=== PATIENT | male | born 1950 | race African-American/Black ===

== ENCOUNTER → 2017-07-15 | Outpatient (CLI) | payer OTHER ==
[~2017-07-15] MED LIST: ACCUPRIL40 MG PO; AMOXICILLIN 50500 M1; ASPIRIN EC81 M1 PO; ATENOLOL 50 MG50 M1 PO; CLARITHROMYCIN250 M2; DOXYCYCLINE 10100 MG PO; ENDUR-ACIN500 MG PO; HYDROCHLOROTHIA25 M2 PO; KEFLEX250 MG PO; LIPITOR40 MG PO; NEXIUM40 MG PO; NORCO 5-325 TA1 EACH PO; NORFLEX100 MG PO; NORVASC10 MG PO; PACERONE 200 M200 M1 PO; PACERONE 200 M200 MG PO; POTASSIUM20 PO; PREDNISONE 20 M20 MG PO; PROAIR HFA8.5 GM INH; PROCARDIA XL60 MG PO; PROCARDIA XL90 MG PO; SLOW-MAG64 MG PO; TESSALON PERLE100 MG PO
--- NOTE | ~2017-07-15 | 2DMMODE ---
[facility] [address] [place] [address] 2 D/M-MODE ECHOCARDIOGRAM Name: KAROLINA MICHELLE Room #: [facility]#: [id number] Admission: 07/15/17 Attend Phys: José Luis Jacome Discharge: Date of : 48 Date of Service: 07/15/17 1227 Report #: [id number] THIS REPORT FOR: //name// APPROVED REPORT Study performed: 07/15/2017 11:04:48 EXAM: Comprehensive 2D, Doppler, and color-flow Echocardiogram Patient Location: Out-Patient Room #: Echo lab 1 Status: routine BSA: 2.26 HR: 60 bpm BP: 132/80 mmHg Other Information Study Quality: Good Indications ICD: Hypertension/HDD 2D Dimensions RVDd: 47.99 mm LVEF(%): 58.76 (>50%) IVSd: 13.88 (7-11mm) LVOT Diam: 23.84 (18-24mm) LVDd: 48.97 mm PWd: 13.26 (7-11mm) Ascending Ao: 33.09 (22-36mm) LVDs: 33.70 (25-40mm) Aortic Root: 33.67 mm IVC: 22.00 mm Bautista's LVEF: 58.76 % Volumes Left Atrial Volume (Systole) Single Plane 4CH: 59.45 mL Single Plane 2CH: 79.99 mL LA ESV Index: 35.00 mL/m2 Aortic Valve AoV Peak Curt.: 1.60 m/s AO Peak Gr.: 10.21 mmHg LVOT Max P.07 mmHg LVOT Max V: 1.01 m/s DANIELLE Vmax: 2.82 cm2 Mitral Valve E/A Ratio: 1.1 MV Decel. Time: 183.76 ms [facility] [place] [address] 2 D/M-MODE ECHOCARDIOGRAM Name: KAROLINA MICHELLE Room #: [facility].#: [id number] Admission: 07/15/17 Attend Phys: José Luis Jacome Discharge: Date of : 48 Date of Service: 07/15/17 1227 Report #: [id number] MV E Max Curt.: 1.01 m/s MV A Curt.: 0.95 m/s MV PHT: 53.29 ms IVRT: 129.18 ms Pulmonary Valve PV Peak Curt.: 1.13 m/s PV Peak Gr.: 5.10 mmHg TX End Vmax: 1.05 m/s Pulmonary Vein P Vein S: 0.62 m/s P Vein A: 0.22 m/s P Vein D: 0.40 m/s P Vein A Dur.: 115.3 msec P Vein S/D Ratio: 1.55 Tricuspid Valve TR Peak Curt.: 2.54 m/s TR Peak Gr.: 25.88 mmHg PA Pressure: 36.00 mmHg Left Ventricle The left ventricle is normal size. Mild concentric left ventricular hypertrophy. The left ventricular systolic function is normal. The left ventricular ejection fraction is within the normal range. LVEF is 50-55%. This study is not technically sufficient to allow evaluation of the LV diastolic function. Right Ventricle Right ventricle is dilated. The right ventricular systolic function is normal. Device lead is present in the right ventricle. Atria Left atrium is dilated. Right atrium is dilated. Device lead is present in the right atrium. Aortic Valve The aortic valve is normal in structure. Aortic valve is calcified. Trace aortic regurgitation. There is no aortic valvular stenosis. Mitral Valve The mitral valve is normal in structure. Mild mitral regurgitation. No evidence of mitral valve stenosis. Tricuspid Valve The tricuspid valve is normal in structure. There is mild tricuspid regurgitation. Estimated PAP 36 mmHg. [place] [address] 2 D/M-MODE ECHOCARDIOGRAM Name: KAROLINA MICHELLE Room #: [facility]#: [id number] Admission: 07/15/17 Attend Phys: José Luis Jacome Discharge: Date of : 48 Date of Service: 07/15/17 1227 Report #: [id number] hypertension. Pulmonic Valve The pulmonary valve is normal in structure. Mild pulmonic regurgitation. Great Vessels The aortic root is normal in size. IVC is dilated and collapses <50% with inspiration. Pericardium There is no pericardial effusion. <Conclusion> The left ventricle is normal size. LVEF is 50-55%. Right ventricle is dilated. Device lead is present in the right ventricle. Left atrium is dilated. Right atrium is dilated. Device lead is present in the right atrium. The aortic valve is normal in structure. Aortic valve is calcified. Trace aortic regurgitation. The mitral valve is normal in structure. Mild mitral regurgitation. The tricuspid valve is normal in structure. There is mild tricuspid regurgitation. Estimated PAP 36 mmHg. There is mild pulmonary hypertension. The pulmonary valve is normal in structure. Mild pulmonic regurgitation. There is no pericardial effusion. <ELECTRONICALLY SIGNED> By: Bulmaro Khan MD 07/15/17 [phone] Bulmaro Khan MD /INF
== END ==
LOC: CV 10:54
DX: I08.1 Rheumatic disorders of both mitral and tricuspid valves (principal); I27.20 Pulmonary hypertension, unspecified; Z95.810 Presence of automatic (implantable) cardiac defibrillator

== ENCOUNTER → 2019-07-12 | Outpatient (CLI) | payer OTHER | LOC: SJCVCIMAG 14:16 | PROVIDERS: ATTEND Internal Medicine Cardiovascular Disease | DX: I08.3 Combined rheumatic disorders of mitral, aortic and tricuspid valves (principal); I48.91 Unspecified atrial fibrillation; Z95.0 Presence of cardiac pacemaker ==

== ENCOUNTER 2020-02-16 23:12 | Inpatient (IN) | payer OTHER ==
[~2020-02-16] VITALS: Ht 182.9 cm; Wt 99.8 kg
[2020-02-16 23:13] VITALS: BP 130/53
[2020-02-16 23:43] LABS: BE(vivo) -2.6 mmol/L (-2 to +3); HCO3 21.3 mmol/L (22.0-26.0); PCO2 34.5 mmHg (35.0-45.0); PO2 235.3 mmHg (80.0-100.0); pH 7.409 (7.360-7.450); sO2 99.5 % (92.0-98.0)
[2020-02-16 23:47] LABS: ANION GAP 11 mmol/L (7-16); BUN 61 mg/dL (7-18); CALCIUM 9.6 mg/dL (8.5-10.1); CHLORIDE 99 mmol/L (98-107); CO2 25 mmol/L (21-32); CREATININE 2.2 mg/dL (0.7-1.3); GLUCOSE 211 mg/dL (74-106); POTASSIUM 4.3 mmol/L (3.5-5.1); SODIUM 135 mmol/L (136-145)
[2020-02-16 23:56] LABS: TROPONIN-I <0.06 ng/mL (<0.06)
[2020-02-17 00:02] LABS: APTT 32.2 Seconds (24.5-32.8); INR 1.2; PROTIME 12.8 Seconds (9.3-11.4)
[2020-02-17 00:49] LABS: HEMOGLOBIN 9.8 gm/dL (14.0-18.0); MCH 31.4 pg (26.0-34.0); MCHC 32.7 g/dL (28.0-37.0); MCV 96.1 fL (80.0-100.0); RBC 3.12 mil/uL (4.50-6.00); RDW 13.3 % (10.5-14.5); WBC 12.1 thou/uL (4.0-11.0)
[2020-02-17] MEDS ORDERED: CARVEDILOL12.5 MG PO (01:28)
[2020-02-17] MEDS ORDERED: ELIQUIS5 MG PO (01:29)
[2020-02-17] MEDS ORDERED: HYDRALAZINE 10M10 MG PO ×2 (01:29→18:09)
[2020-02-17] MEDS ORDERED: NIFEDIPINE ER90 MG PO (01:30)
[2020-02-17] MEDS ORDERED: K-DUR 20 MEQ T20 MEQ PO (01:30)
[2020-02-17] MEDS ORDERED: TAMSULOSIN HCL0.4 MG PO (01:31)
[2020-02-17] MEDS ORDERED: FAMOTIDINE40 MG PO (01:31)
[2020-02-17] MEDS ORDERED: PRAVACHOL40 MG PO (01:31)
[2020-02-17 03:11] LABS: URINE BILIRUBIN NEGATIVE (Negative); URINE BLOOD NEGATIVE (Negative); URINE CLARITY CLEAR; URINE COLOR YELLOW; URINE GLUCOSE-RANDOM* NEGATIVE (Negative); URINE KETONES NEGATIVE (Negative); URINE LEUKOCYTES-REFLEX NEGATIVE (Negative); URINE NITRITE-REFLEX NEGATIVE (Negative); URINE PROTEIN (DIPSTICK) NEGATIVE (Negative)
--- NOTE | 2020-02-17 10:04 | NUR ---
CLERICAL PROOFREADER SPOKE TO PT'S SPOUSE (PT'S VERBAL CONSENT OBTAINED). UPDATE ON POC GIVEN LAB AND IMAGING RESULTS DISCUSSED. SHE WAS ALSO MADE AWARE BED ASSIGNMENT IS STILL PENDING AT THIS TIME. MESSAGE FROM SPOUSE RELAYED TO PT.
[2020-02-17 15:51] VITALS: BP 151/77
[2020-02-17 16:52] VITALS: BP 162/74
[2020-02-17 17:36] VITALS: BP 140/68
--- NOTE | 2020-02-17 18:35 | NUR ---
PT CARE ASSUMED AT 1750 FROM ER. A&Ox4. ON BIPAP 40L. ADMISSION COMPLEETED WITH OVER THE PHONE. IV PATENT WITH NO REDNESS OR EDEMA. CAN BE ON HIGHFLOW WHILE EATING. FALL PROTOCOL IN PLACE. CALL LIGHT IN REACH. WILL CONTINUE TO MONITOR.
[2020-02-17 19:55] LABS: ALBUMIN 2.5 g/dL (3.4-5.0); DIRECT BILIRUBIN 0.1 mg/dL (<0.1-0.2); TOTAL BILIRUBIN 0.5 mg/dL (0.2-1.0); TOTAL PROTEIN 7.3 g/dL (6.4-8.2)
[2020-02-17 21:27] VITALS: BP 147/75
[2020-02-18] VITALS (7 sets, daily range): BP systolic 137–178; BP diastolic 78–90
--- NOTE | 2020-02-18 04:36 | NUR ---
PT AOX4 WITH INTERMITTENT FORGETFULNESS. PT DENIES PAIN. PT HAS PRN PO APAP Q6HR AVAILABLE. PT REPORTS SOB WITH EXERTION AND AT REST WHILE ON 10L VIA HIGH FLOW NASAL CANNULA. PT ON BIPAP AT HS. PT TOLERATING PO INTAKE OF FLUIDS AND HEART HEALTHY DIET WITHOUT ISSUE. PT WITHOUT NAUSEA OR EMESIS. PT VOIDING PER URINAL INDEPENDENTLY. PT AMBULATING SHORT DISTANCES WITH STANDBY/MINIMAL ASSIST PT REPORTS WEAKNESS. PT RESTING IN BED THROUGHOUT SHIFT, FREQUENT REPOSITIONING ENCOURAGED. PT NOTED TO SHIFT INDEPENDENTLY WHILE IN BED. PT ENCOURAGED TO NOTIFY STAFF FOR ALL NEEDS, CALL LIGHT WITHIN REACH, BED ALARM ON, BED IN LOWEST POSITION, FREQUENT MONITORING WILL CONTINUE.
[2020-02-18 05:49] LABS: HEMATOCRIT 29.2 % (42.0-52.0); HEMOGLOBIN 9.5 gm/dL (14.0-18.0); MCH 31.6 pg (26.0-34.0); MCHC 32.6 g/dL (28.0-37.0); MCV 96.8 fL (80.0-100.0); RBC 3.02 mil/uL (4.50-6.00); RDW 13.6 % (10.5-14.5); WBC 16.8 thou/uL (4.0-11.0)
[2020-02-18 06:08] LABS: ALBUMIN 2.4 g/dL (3.4-5.0); CALCIUM 9.3 mg/dL (8.5-10.1); CREATININE 1.3 mg/dL (0.7-1.3); DIRECT BILIRUBIN 0.1 mg/dL (<0.1-0.2); PHOSPHORUS 2.8 mg/dL (2.6-4.7); POTASSIUM 4.1 mmol/L (3.5-5.1); TOTAL BILIRUBIN 0.3 mg/dL (0.2-1.0); TOTAL PROTEIN 7.5 g/dL (6.4-8.2)
--- NOTE | 2020-02-18 10:55 | NUR ---
PT CARE ASSUMED AT 0700. A&Ox4 WITH FORGETFUL EPISODES AND REINFORCEMENT WITH NEW INFORMATION. PT REFUSED CONVOLECENT PLASMA LAST NIGHT AND WANTED TO SPEAK TO HIS FIRST. IPAD IN ROM TO SPEAK TO . PT CONSENTED TO CONVOLESENT PLASMA WHICH IS CURRENTLY INFUSING. PT VERY TIRED. TRIAL DONE TO REDUCE O2 TO 8L BUT FAILED. ADJUSTED BACK UP TO 10L. VITALS ARE STABLE. FALL PROTOCOL IN PLACE. IV PATENT WITH NO REDNESS OR EDEMA, FLUIDS INFUSING. PT IS NT EATING HIS MEALS. NO AETITE. URINAL AT BEDISTE. PT HAD A INCONTINENT BOWEL EPISODE NOT DIARRHEA AND IS NOW WEARING BRIEFS. CALL LIGHT IN REACH. WILL CONTINUE TO MONITOR.
--- NOTE | 2020-02-18 11:16 | EKG ---
[address] [place] [address] ELECTROCARDIOGRAM REPORT Name: KAROLINA MICHELLE Room #: 355-P ADM IN M.R.#: [id number] Admission: 02/17/20 Attend Phys: Thaddeus Gutierrez MD Discharge: Date of : 48 Report #: [id number] [facility] ED Test Date: 2020-02-16 Test Time: 23:12:42 Pat Name: KAROLINA MICHELLE Department: Room: 355 Gender: M Public Records Researcher: jarred : 1950 Requested By: Jamaal Pickens Order Number: [id number] MD: Herminio Kendall Measurements Intervals [place] Rate: 60 P: 0 IN: 65 QRS: -76 QRSD: 212 T: 86 QT: 578 QTc: 578 Interpretive Statements Atrial-ventricular dual-paced complexes No further analysis attempted due to paced rhythm Compared to ECG 02/01/2015 08:09:45 No significant changes Electronically Signed On 02-18-2020 11:16:09 BOAT OPERATOR by Herminio Kendall [email or web address] <ELECTRONICALLY SIGNED> By: Herminio Kendall MD, [facility] 02/18/20 1116 D: 12/2311 11 Herminio Kendall MD, FACC /EPI
--- NOTE | 2020-02-18 17:18 | HC ---
[facility] [place] [address] CONSULTATION Name: KAROLINA MICHELLE Room #: 355- ADM IN M.R.#: [id number] Admission: 02/17/20 Attend Phys: Thaddeus Gutierrez MD Discharge: Date of : 48 Report #: [id number] THIS REPORT FOR: cc: FAM - No family physician/PCP FAM - No family physician/PCP Raphael Gonzalez MD ~ DATE OF SERVICE: 02/17/2020 REASON FOR CONSULTATION: I was asked to evaluate concerning COVID-19 pneumonia and respiratory failure. HISTORY OF PRESENT ILLNESS: The patient is a 70-year-old who has not felt well for about a month. This has been associated with some progressive shortness of breath. Minimal cough or sputum production. No fever, chills, or sweats. Over the last 4 days, he has noticed progressive shortness of breath and presented to the Emergency Room for further evaluation. His was tested COVID negative. He was recently tested COVID positive. He was screened here during his initial evaluation and is confirmed COVID-19 positive. He has had cough with minimal sputum production. No hemoptysis. No pleuritic chest pain. He has had mild headache. Loss of taste and smell. Mild nausea and diarrhea. No abdominal pain. No arthritis or myalgias. No travel. No previous history of pneumonia. Nonsmoker. No HIV risk factors. He is obese. He does have a history of hypertension and atrial fibrillation with known renal insufficiency. REVIEW OF SYSTEMS: A 14-point review of system was negative other than what has been described above. ALLERGIES: None. MEDICATIONS: Included doxycycline prior to his admission. Other medications as noted on his MAR. 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 FAMILY HISTORY: Positive for cancer. SOCIAL HISTORY: Nonsmoker, no significant alcohol intake. Lives with his . PHYSICAL EXAMINATION: VITAL SIGNS: He was afebrile and hemodynamically stable. Moderate obesity. SKIN: Without rash or decubitus. No palpable adenopathy. EYES: Without scleral icterus. MOUTH: Without mucositis. [facility] [address] [place] [address] CONSULTATION Name: KAROLINA MICHELLE Room #: 355-P [facility] IN .R.#: [id number] Admission: 02/17/20 Attend Phys: Thaddeus Gutierrez MD Discharge: Date of : 48 Report #: [id number] NECK: Supple. LUNGS: Coarse breath sounds posteriorly. HEART: Regular, without murmur, gallop, or rub. ABDOMEN: Mild obesity, soft, nontender, no hepatosplenomegaly or mass. EXTREMITIES: With no clubbing, cyanosis, or edema. GENITAL AND RECTAL: Not performed. NEUROLOGIC: Cranial nerves intact. Strength in his upper and lower extremities was symmetric and within normal limits. BACK: Nontender to percussion. PSYCHIATRIC: Mood without anxiety or depression. LABORATORY STUDIES: Reviewed. MICROBIOLOGY: Reviewed. IMAGING STUDIES: Chest x-ray reviewed. IMPRESSION: 1. A 70-year-old with COVID-19 pneumonia and systemic inflammatory response syndrome with respiratory failure, now on BiPAP. He has acute on chronic kidney injury with GFR of 36. 2. Chronic kidney disease. 3. Asthma. 4. Paroxysmal atrial fibrillation. 5. Cardiomyopathy. 6. Hypertension. RECOMMENDATIONS: 1. We will continue care on the COVID unit for isolation and cardiopulmonary monitoring. Treat with combination antiviral therapy. 2. Monitor laboratory studies including creatinine and liver function tests. Serial chest x-rays. Antibiotic therapy while awaiting further culture results. The patient is at risk for further progression of disease given his age, underlying asthma, and need for BiPAP at this point. <ELECTRONICALLY SIGNED> By: Raphael Gonzalez MD 02/18/20 1718 [id number] Raphael Gonzalez MD /nt
[2020-02-19 03:05] VITALS: BP 161/81
--- NOTE | 2020-02-19 05:25 | NUR ---
PT RESTING QUIETLY. NO C/O PAIN. NO S/S DISTRESS. PT PROGRESSING WELL TOWARDS D/C GOALS.
[2020-02-19 06:24] LABS: HEMATOCRIT 28.2 % (42.0-52.0); HEMOGLOBIN 9.4 gm/dL (14.0-18.0); MCH 32.2 pg (26.0-34.0); MCHC 33.5 g/dL (28.0-37.0); MCV 96.1 fL (80.0-100.0); RBC 2.93 mil/uL (4.50-6.00); RDW 13.5 % (10.5-14.5); WBC 14.6 thou/uL (4.0-11.0)
[2020-02-19 06:33] LABS: ALBUMIN 2.6 g/dL (3.4-5.0); CALCIUM 9.3 mg/dL (8.5-10.1); CREATININE 1.3 mg/dL (0.7-1.3); DIRECT BILIRUBIN 0.2 mg/dL (<0.1-0.2); PHOSPHORUS 2.4 mg/dL (2.5-4.9); POTASSIUM 3.6 mmol/L (3.5-5.1); TOTAL BILIRUBIN 0.5 mg/dL (0.2-1.0); TOTAL PROTEIN 7.6 g/dL (6.4-8.2)
[2020-02-19 09:17] VITALS: BP 160/89
[2020-02-19 15:36] VITALS: BP 168/91
[2020-02-19 20:35] VITALS: BP 160/94
--- NOTE | 2020-02-20 03:00 | NUR ---
PATIENT ALERT AND ORIENTED X4. AT SHIFT CHANGE PATIENT WAS ON A VIDEO CALL WITH HIS . THIS NURSE SPOKE TO HER REGARDING PATIENTS LUNGS AND HOW HIS DAY WENT. MRS. MICHELLE WOULD LIKE TO HAVE A VIDEO CHAT WITH THE AM NURSE IN THE MORNING. BS MONITORED PER ORDER. IVF INFUSING W/O COMPLICATION. 02NC PER RT WITH CONTINUOUS PULSE OX. PATIENT COOPERATIVE WITH CARE. VOIDING PER URINAL. DENIES PAIN. WILL MONITOR.
[2020-02-20 05:22] VITALS: BP 163/89
[2020-02-20 06:44] LABS: ALBUMIN 2.8 g/dL (3.4-5.0); CALCIUM 9.8 mg/dL (8.5-10.1); CREATININE 1.5 mg/dL (0.7-1.3); DIRECT BILIRUBIN 0.2 mg/dL (<0.1-0.2); PHOSPHORUS 3.7 mg/dL (2.5-4.9); POTASSIUM 3.8 mmol/L (3.5-5.1); TOTAL BILIRUBIN 0.5 mg/dL (0.2-1.0); TOTAL PROTEIN 7.9 g/dL (6.4-8.2)
[2020-02-20 07:35] VITALS: BP 147/98
--- NOTE | 2020-02-20 12:54 | NUR ---
INITIAL ASSESSMENT: SW reviewed chart and spoke with nursing and attending physician. Pt was admitted from home due to pneumonia/hypoxia. Pt placed in Enhanced Isolation due to positive COVID-19 test. Pt is afebrile and on 9L of O2. Pt is on IV abx and IV steroids. Pt is completing courses of Remdesivir and Ivermectin. Discharge home is anticipated in 1-2 days. SW spoke with pt via phone. Introduced role of SW. Pt is alert/orientated x 4. Pt reports he lives at home with his . Prior to admission, pt was independent with ADLs. No use of DME. Pt states he has used HH in the past, but unsure of provider. Pt's PCP is Dr. Sherman Cm. Pt states his plan is to discharge home when medically stable. Pt will need a rest/exercise oximetry to determine home O2 needs. SW is following to assist as needed with discharge planning.
[2020-02-20 15:26] VITALS: BP 112/70
--- NOTE | 2020-02-20 18:02 | NUR ---
PT CARE ASSUMED AT 0700. A&Ox4. PT UP IN THE RECLINER ALL DAY. WEANED DOWN TO 4L SATING AT 97%. TOLERATING WELL. IV PATENT WITH NO REDNESS OR EDEMA, FLUIDS INFUSING. FALL PROTOCOL IN PLACE. ACHS WITH SLIDING SCALE IN PLACE. USES URINAL AT BEDSIDE. AFIB PACED, BB ON MONITOR. WILL CONTINUE TO MONITOR.
[2020-02-20 19:38] VITALS: BP 125/68
[2020-02-21 03:25] VITALS: BP 147/83
[2020-02-21 05:49] LABS: HEMATOCRIT 29.3 % (42.0-52.0); HEMOGLOBIN 9.7 gm/dL (14.0-18.0); MCH 31.4 pg (26.0-34.0); MCV 95.3 fL (80.0-100.0); RBC 3.08 mil/uL (4.50-6.00); RDW 13.6 % (10.5-14.5); WBC 13.5 thou/uL (4.0-11.0)
[2020-02-21 06:21] LABS: ALBUMIN 2.6 g/dL (3.4-5.0); CREATININE 1.3 mg/dL (0.7-1.3); DIRECT BILIRUBIN 0.1 mg/dL (<0.1-0.2); PHOSPHORUS 3.5 mg/dL (2.5-4.9); POTASSIUM 4.1 mmol/L (3.5-5.1); TOTAL BILIRUBIN 0.4 mg/dL (0.2-1.0); TOTAL PROTEIN 7.2 g/dL (6.4-8.2)
[2020-02-21 07:40] VITALS: BP 117/62
--- NOTE | 2020-02-21 14:37 | NUR ---
YINA reviewed chart and spoke with nursing and attending physician. Pt remains in Enhanced Isolation due to COVID-19. Pt is afebrile and on 4-6L of O2. Pt is on IV abx and completing course of Remdesivir. Discharge home is anticipated in 1-2 days. Recommendation made for HH. Pt will need a rest/exercise oximetry ordered to determine if pt needs home O2. YINA placed call to pt's room. No answer. YINA spoke with pt's , Shreya, via phone to provide update and discuss discharge recommendations. Pt's is agreeable with HH and Home O2. Options provided. No preference voiced. SW confirmed pt's home address. YINA faxed HH referral to [facility] for review. YINA also faxed referral to [facility] for review for possible home O2. YINA is following to assist as needed with discharge planning.
[2020-02-21 15:21] VITALS: BP 119/67
[2020-02-21 19:15] VITALS: BP 108/64
--- NOTE | 2020-02-21 19:30 | NUR ---
RN ASSUMED PT'S CARE AT 0700AM, PT IS A&0X3, PT IS ON O2 4L/MIN/NC, PT'S VS ARE STABLE, PT HAS SOB WITH ACTIVITIES, PT GETS UP TO CHAIR AND WALK IN HIS ROOM, PT DENIES PAIN BY THIS TIME.
[2020-02-22 04:07] VITALS: BP 126/75
[2020-02-22 07:18] VITALS: BP 133/72
[2020-02-22 09:10] VITALS: BP 150/87
--- NOTE | 2020-02-22 13:15 | NUR ---
Pt seen for LOS. Pt continues with fair appetite, consuming ~66% at meal times. No new wt since admission for review. No PU noted. No c/o GI distress. Pt remains low nutrition risk.
--- NOTE | 2020-02-22 14:59 | NUR ---
YINA reviewed chart and spoke with nursing and attending physician. Pt remains in Enhanced Isolation due to COVID-19. Pt is afebrile and still requiring O2. Rest/exercise oximetry completed. Pt needs 4L of O2. YINA discussed with attending physician. Discharge home is anticipated for tomorrow. Pt is on IV abx. YINA updated Radha in intake at [facility] and Rajesh at [facility] of pt's discharge. YINA placed call to pt's room. No answer. YINA spoke with pt's , Shreya, via phone to discuss discharge plan. Pt's is agreeable. Pt's son will be providing transportation home. YINA is following to assist as needed with discharge planning.
[2020-02-22 15:23] VITALS: BP 150/87
--- NOTE | 2020-02-22 17:59 | NUR ---
RN ASSUMED PT'S CARE AT 0700AM, PT IS A&OX3, PT IS ON O2 2L/MIN/NC AND O2 4L/MIN/NC WITH ACTIVITIES PER RT CHECK, PT'S VS ARE STABLE, PT DOES NOT HAVE FEVER, PT GETS UP TO WALK IN HI ROOM, PT MAY DC TO HOME TOMORROW.
[2020-02-22 20:18] VITALS: BP 144/80
[2020-02-23 04:40] VITALS: BP 139/86
[2020-02-23 06:47] LABS: HEMATOCRIT 29.9 % (42.0-52.0); HEMOGLOBIN 9.6 gm/dL (14.0-18.0); MCHC 32.2 g/dL (28.0-37.0); MCV 96.4 fL (80.0-100.0); RBC 3.1 mil/uL (4.50-6.00); RDW 13.9 % (10.5-14.5); WBC 13.5 thou/uL (4.0-11.0)
[2020-02-23 07:08] LABS: CALCIUM 9.8 mg/dL (8.5-10.1); CREATININE 1.2 mg/dL (0.7-1.3); POTASSIUM 3.8 mmol/L (3.5-5.1)
[2020-02-23] MEDS ORDERED: PREDNISONE 10 M10 M1 PO (07:59)
[2020-02-23 08:02] VITALS: BP 150/83
[2020-02-23 09:01] VITALS: BP 150/83
[2020-02-23 11:08] VITALS: BP 150/83
--- NOTE | 2020-02-23 11:43 | NUR ---
PT CARE ASSUMED AT 0700. A&Ox4. PT UP IN THE RECLINER WITH RECLINER AT BED SITE. ON 2L RESTING AND 4L WHEN UP AND MOVING AROUND. UPDATED ON DISCAHRGE INSTRUCTIONS. IV REMOVED. ACHS WITH LOW SLIDING SCALE. RT EVALUATED FOR RESTING VS. EXCERCISE O2 NEEDS. FALL PROTOCOL IN PLACE. CALL LIGHT IN REACH. WILL CONTINUE UNTIL RIDE ARRIVES FOR PATIENT. DISCAHRGED WITH NO FURTHER QUESTIONS FROM PATIENT OR .
--- NOTE | 2020-02-23 13:56 | NUR ---
DISCHARGE NOTE: SW reviewed chart and spoke with nursing and attending physician. Pt remains in Enhanced Isolation due to COVID-19. Pt is medically stable for discharge home today with and Home O2. SW faxed finalized discharge orders/summary to [facility] . Line busy at . Will follow up with intake to confirm info was received. YINA faxed rest/exercise oximetry results and script to [facility] for home O2. Portable O2 tank delivered to pt's room earlier today. SW placed contact info for and [facility] in pt's discharge summary. Pt's family to provide transportation home. No additional SW needs identified at this time, but is available to assist should needs arise.
== END 2020-02-23 13:33 | disposition home health service (06) | DRG 871 ==
LOC: ER 23:12 → 3W 02-17 01:34 → EROBS 02-17 01:34 → 3W 02-17 17:01
PROVIDERS: Emergency Medicine; Hospitalist; Internal Medicine Pulmonary Disease; Nurse Practitioner Family; Specialist; ADMIT Internal Medicine; ATTEND Internal Medicine
DX: A41.9 Sepsis, unspecified organism (principal); U07.1 COVID-19; J96.01 Acute respiratory failure with hypoxia; G92 Toxic encephalopathy; J12.89 Other viral pneumonia; N17.0 Acute kidney failure with tubular necrosis; I42.9 Cardiomyopathy, unspecified; I50.22 Chronic systolic (congestive) heart failure; I48.20 Chronic atrial fibrillation, unspecified; I13.0 Hypertensive heart and chronic kidney disease with heart failure and stage 1 through stage 4 chronic kidney disease, or unspecified chronic kidney disease; I48.0 Paroxysmal atrial fibrillation; E78.5 Hyperlipidemia, unspecified; N18.9 Chronic kidney disease, unspecified; J45.909 Unspecified asthma, uncomplicated; E87.6 Hypokalemia; D64.9 Anemia, unspecified; I95.9 Hypotension, unspecified; Z89.111 Acquired absence of right hand; Z95.0 Presence of cardiac pacemaker; Z82.49 Family history of ischemic heart disease and other diseases of the circulatory system; Z79.01 Long term (current) use of anticoagulants; Z28.21 Immunization not carried out because of patient refusal; Z79.899 Other long term (current) drug therapy
CPT/HCPCS: 10879

== ENCOUNTER → 2020-07-11 | Outpatient (CLI) | payer OTHER ==
[~2020-07-11] MED LIST changes: +CARVEDILOL12.5 MG PO; +ELIQUIS5 MG PO; +FAMOTIDINE40 MG PO; +HYDRALAZINE 10M10 MG PO; +K-DUR 20 MEQ T20 MEQ PO; +NIFEDIPINE ER90 MG PO; +PRAVACHOL40 MG PO; +PREDNISONE 10 M10 M1 PO; +TAMSULOSIN HCL0.4 MG PO
== END ==
LOC: SJCVC 13:29
PROVIDERS: ATTEND Internal Medicine Cardiovascular Disease
DX: I47.2 Ventricular tachycardia (principal); I44.2 Atrioventricular block, complete; I48.0 Paroxysmal atrial fibrillation; I10 Essential (primary) hypertension; E78.5 Hyperlipidemia, unspecified; Z85.810 Personal history of malignant neoplasm of tongue; Z86.16 Personal history of COVID-19; Z87.891 Personal history of nicotine dependence; Z79.899 Other long term (current) drug therapy; Z95.0 Presence of cardiac pacemaker; Z82.49 Family history of ischemic heart disease and other diseases of the circulatory system

== ENCOUNTER → 2021-03-20 | Outpatient (CLI) | payer OTHER | LOC: SJCVC 12:35 | PROVIDERS: ATTEND Internal Medicine Cardiovascular Disease | DX: I47.2 Ventricular tachycardia (principal); I44.2 Atrioventricular block, complete; I48.0 Paroxysmal atrial fibrillation; I12.9 Hypertensive chronic kidney disease with stage 1 through stage 4 chronic kidney disease, or unspecified chronic kidney disease; N18.9 Chronic kidney disease, unspecified; E78.5 Hyperlipidemia, unspecified; Z95.0 Presence of cardiac pacemaker; Z86.16 Personal history of COVID-19; Z87.891 Personal history of nicotine dependence; Z72.89 Other problems related to lifestyle; Z79.899 Other long term (current) drug therapy; Z88.8 Allergy status to other drugs, medicaments and biological substances ==